=== PATIENT | female | born 1950 | race Two or more races ===

== ENCOUNTER 2018-05-14 10:02 | Emergency (ER) | payer OTHER ==
[2018-05-14 10:33] VITALS: BP 115/88; PULSE 59; TEMP 99.1; BMI 47.6
[2018-05-14] MEDS ORDERED: KETOROLAC TROMETHAMINE 60 MG/2 ML VIAL IM ONE (10:59)
--- NOTE | 2018-05-14 11:00 | PDOC ---
History of Present Illness - General Chief Complaint: Pain Stated Complaint: PAIN Time Seen by Provider: 05/14/18 10:59 History Source: Patient, Family (son translated per pt request) Past History - Past Medical History Allergies/Adverse Reactions: Allergies Allergy/AdvReac Type Severity Reaction Status Date / Time No Known Allergies Allergy Verified 05/14/18 10:29 Home Medications: Ambulatory Orders Acetaminophen 325 mg PO ACDIN #21 tablet 05/14/18 Atenolol [Tenormin -] 50 mg PO DAILY 05/14/18 Meclizine HCl 25 mg PO ASDIR 05/14/18 Memantine HCl [Memantine HCl ER] 14 mg PO ASDIR 05/14/18 Tramadol HCl 50 mg PO ASDIR 05/14/18 Valsartan/Hydrochlorothiazide [Valsartan-Hctz 160-12.5 mg Tab] 160 mg PO ASDIR 05/14/18 COPD: No HTN: Yes - Suicide/Smoking/Psychosocial Hx Smoking History: Never smoked Hx Alcohol Use: No Drug/Substance Use Hx: No *Physical Exam - Vital Signs Last Vital Signs Temp Pulse Resp BP Pulse Ox 99.1 F 59 L 20 115/88 99 05/14/18 10:30 05/14/18 10:30 05/14/18 10:30 05/14/18 10:30 05/14/18 10:30 Medical Decision Making - Medical Decision Making 05/14/18 11:01 67 years old female with tailbone pain for at the job, she landed on her buttocks 9 days ago. pt denies LOC or head trauma. Denies B/B incontience or saddle anesthesia, She is accompanied to the emergency by son Jovany who translated for [place]ian. Examination consist of tailbone tenderness. There is no bowel or bladder incontinence or saddle anesthesia reported. Patient does have a normal gait. Plan is x-ray of the coccyx and lumbosacral spine REGINA Toradol given for pain. Disposition pending 05/14/18 12:18 wet read gracie pacheco recommended rx for tylenol *DC/Admit/Observation/Transfer Diagnosis at time of Disposition: Coccyx pain - Discharge Dispostion Disposition: HOME Decision to Admit order: No - Prescriptions Prescriptions: Acetaminophen 325 mg PO ACDIN #21 tablet - Referrals Referrals: Tru Morrison MD [Primary Care Provider] - - Patient Instructions Printed Discharge Instructions: Coccydynia - Post Discharge Activity
[2018-05-14] MEDS ORDERED: KETOROLAC TROMETHAMINE 30 MG/1 ML VIAL ONE (11:04)
== END 2018-05-14 12:28 | disposition home or self-care (01) ==
LOC: JERFT 10:02 → JER 10:02 → JERFT 12:28
PROC: 3E0233Z Introduction of Anti-inflammatory into Muscle, Percutaneous Approach (ICD-10-PCS; principal; 2018-05-14)
DX: M53.3 Sacrococcygeal disorders, not elsewhere classified (principal); W18.39XA Other fall on same level, initial encounter; Y93.89 Activity, other specified; Y92.89 Other specified places as the place of occurrence of the external cause; Y99.0 Civilian activity done for income or pay
CPT/HCPCS: 72100-TC-FY; 72220-TC-FY; 96372; 99281-25